=== PATIENT | female | born 1965 | race Caucasian/White ===

== ENCOUNTER 2016-12-18 05:27 | Emergency (ER) | payer OTHER ==
[~2016-12-18] VITALS: Ht 160 cm; Wt 90.9 kg
[2016-12-18 05:32] VITALS: BP 139/90; PULSE 84; RESP 16; O2SAT 99
--- NOTE | 2016-12-18 06:06 | ED.REPORT ---
HPI-Extremity Problem Lower Date of Service Dec 18, 2016 ED Provider: Adrienne Llanos MD The patient is a 51 year old female who presents to the ED due to left leg pain after a GLF this morning. She slipped on a wet floor and landed on her left leg. She reports pain from her left knee down into her ankle. Pt denies LOC and did not hit her head or back. She cannot put any weight on her leg and states that her, "whole lower leg throbs." Pt has not taken any medication for pain. Nursing Notes Stated Complaint: LEFT LEG POSS BROKEN Chief Complaint: Extremity Trauma Nursing Notes Reviewed: Yes Allergies: Coded Allergies: No Known Allergies (Unverified , 12/18/16) Scheduled PRN Hydrocodone-Acetaminophen 5-325 mg (Hydrocodone-Acetaminophen 5-325 mg) 1 Each Tablet 1 TABLET PO Q6H PRN PRN For Pain General Time Seen by MD: 06:05 Chief Complaint Leg injury left Hx Obtained From: Patient Arrived By: Walk-in Onset Occurred: Just prior to arrival Symptom Duration: Since onset Caused by: Fall on ground Context: Occurred at: Home injury Location: : Ankle left: Leg left Quality: Painful Severity: Current: Moderate Exacerbated by: Range of motion Recent Healthcare: No recent doctor visit, No recent hospitalization Past Medical History Past Medical History denies Past Surgical History bowel resection ankle fusion x2 Reports: Appendectomy Smoking History Unknown if Ever Smoker Social History Other Social History: Good social support, , Local resident Ambulatory Status Independent Review of Systems Musculoskeletal: Reports: Extremity pain (left leg), Extremity swelling (left leg), Denies: Lumbar pain, Neck pain, Thoracic pain Neurologic: Reports: Numbness (left foot), Denies: Change LOC, Dizziness, Syncope, Weakness Complete sys rev & neg: except as marked. Physical Exam Initial Vital Signs Vital Signs (First) Date Time Temp Pulse Resp B/P Pulse Ox O2 Delivery O2 Flow Rate FiO2 12/18/16 05:32 36.8 84 16 139/90 99 Room Air Initial VS: Reviewed Lower Extremity / Pelvis / MS: Neurologic intact Left Leg / Calf: Positive: Swelling present..., Tenderness present... sensation and motor intact point tenderness proximal fibula Ankle / Foot: No deformity, Neurologic intact no medial or lateral malleolar tenderness General/Constitutional: Awake, Alert, Cooperative, Not toxic appearing Skin: Atraumatic, Warm, Dry Neurologic: Oriented X3, Speech NL, No motor deficits, No sensory deficits Head / Eyes: Atraumatic, Normocephalic, PERRL, EOMI Neck: Atraumatic, Supple, Full range of motion, Non-tender, No midline vertebral tend Back: Atraumatic, Inspection NL, Full range of motion, Non-tender, No midline vertebral tend, No CVA tenderness Upper Extremity / MS: Full range of motion, No swelling, Non-tender bruise to distal posterior forearm Interpretation & Diagnostics X-Ray Interpretation Xray Interpretation: LEFT TIBIA/FIBULA X-RAY IMPRESSION: proximal fibula fracture X-Ray Ordered: Tibia fibula left Interpretation / Wet Read by: Wet read ED physician Re-Eval/Medical Decision Med Decision/Clinical Course The patient presents with an isolated left lower extremity injury. She does not have any bony tenderness to her ankle she does have proximal fibular pain but no midcalf pain. Her x-ray suspicious for proximal fibular fracture. The patient is a splint, she is neurovascularly intact. Counseled Regarding: Diagnosis, Lab results, Need for follow-up, When/why to return to ED Discharge & Departure Impression: Primary Impression: Fracture, fibula, proximal Encounter type: initial encounter Fracture type: closed Fracture morphology : unspecified fracture morphology Laterality: left Qualified Code: S82.832A - Other fracture of upper and lower end of left fibula, initial encounter for closed fracture Additional Impression: Ankle sprain Encounter type: initial encounter Involved ligament of ankle: unspecified ligament Laterality: left Qualified Code: S93.402A - Sprain of unspecified ligament of left ankle, initial encounter Disposition: Home Discharge Condition All VS Reviewed: Yes Condition: Stable Patient Instructions: Ankle Sprain (GEN), Crutch Instructions (ED), Leg Fracture (ED) Additional Instructions: Thank you for entrusting us with your care today. You have a proximal fibula fracture and have sprained your ankle. Use Tylenol and Ibuprofen as needed for pain. Follow up in one week with your doctor. Return to the Emergency Department for any new or worsening symptoms including increased pain, redness, warmth, or fever. I hope you feel better soon! Referrals: Victor Hugo Diaz MD (PCP) Scribe Attestation Portion of this note were transcribed by Elen Arguelles. I, Dr. Llanos , personally performed the history, physical exam, and medical decision-making: I reviewed and confirmed the accuracy for the information in the transcribed note. Signed by: rolanda Ferrell, 12/18/16 0800 copies to: Victor Hugo Diaz MD, Jena M MD Dec 18, 2016 06:06 Elen Arguelles Dec 18, 2016 06:08
[2016-12-18] MEDS ORDERED: HYDR-4003 PO (06:30)
--- NOTE | 2016-12-18 08:34 | DRSVH ---
PROCEDURE: X-RAY LEFT TIBIA/FIBULA, TWO VIEWS ([id number]) INDICATIONS: FALL, DISTAL TIB/FIB PAIN TECHNIQUE: 2 views of the tibia and fibula were acquired. COMPARISON: None. FINDINGS: Bones: No fractures or dislocations. No suspicious bony lesions. There is a surgical screw gilbert ing the calcaneus and talus. Soft tissues: No suspicious soft tissue calcifications or masses. IMPRESSION: No fracture or dislocation. Arthrodesis of the subtalar joint. Dictated by: Milla Lewis M.D. on 12/18/2016 at 8:32 Approved by: Milla Lewis M.D. on 12/18/2016 at 8:33
== END 2016-12-18 07:25 | disposition home or self-care (01) ==
LOC: SED 05:27
DX: S82.832A Other fracture of upper and lower end of left fibula, initial encounter for closed fracture (principal); S93.402A Sprain of unspecified ligament of left ankle, initial encounter; W01.0XXA Fall on same level from slipping, tripping and stumbling without subsequent striking against object, initial encounter; Y93.89 Activity, other specified; Y92.89 Other specified places as the place of occurrence of the external cause; Y99.8 Other external cause status

== ENCOUNTER 2017-01-12 19:43 | Emergency (ER) | payer OTHER ==
[~2017-01-12] VITALS: Ht 160 cm; Wt 95.5 kg
[~2017-01-12 19:43] MED LIST: HYDR-4003 PO
[2017-01-12 19:47] VITALS: BP 152/83; PULSE 88; RESP 20; O2SAT 100
--- NOTE | 2017-01-12 20:12 | ED.REPORT ---
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 She washed the wound with alcohol and put antibiotic ointment. Pt denies any medical issues or significant medical hx. Nursing Notes Stated Complaint: DOG BITE TO FACE Chief Complaint: Laceration Nursing Notes Reviewed: Yes Allergies: Coded Allergies: No Known Allergies (Unverified , 12/18/16) Scheduled PRN Hydrocodone-Acetaminophen 5-325 mg (Hydrocodone-Acetaminophen 5-325 mg) 1 Each Tablet 1 TABLET PO Q6H PRN PRN For Pain General Time Seen by Provider: 20:34 Chief Complaint Animal bite Hx Obtained From: Patient Arrived By: Walk-in Onset Occurred: Just prior to arrival Symptom Duration: Since onset Caused by: Dog bite Context: Occurred at: Home Recent Healthcare: No recent doctor visit, No recent hospitalization Similar Sx Previous: No Past Medical History Past Medical History denies Past Surgical History bowel resection ankle fusion x2 Reports: Appendectomy Smoking History Unknown if Ever Smoker Social History Other Social History: Good social support, , Local resident Ambulatory Status Independent Review of Systems Review of Systems Note: dog bite Skin: Reports Swelling (left cheek dog bite) Neurologic: Denies: Change LOC, Syncope Complete sys rev & neg: except as marked. Hematologic: Denies Bleeding Physical Exam Initial Vital Signs Vital Signs (First) Date Time Temp Pulse Resp B/P Pulse Ox O2 Delivery O2 Flow Rate FiO2 01/12/17 19:47 36.5 88 20 152/83 100 Room Air Initial VS: Reviewed Head / Eyes: Atraumatic, Normocephalic, PERRL, EOMI ENT: Atraumatic, Airway patent, Mucous membranes moist Neck: Atraumatic, Supple Neurologic: Oriented X3, Speech NL, No motor deficits General/Constitutional: Awake, Alert, No acute distress Respiratory / Chest: Atraumatic, Breath sounds NL, Breath sounds = bilat, No respiratory distress Cardiovascular: Heart rate NL, Regular rhythm, Heart sounds NL, No gallop, No murmurs, No rubs Trauma / Burn / Environmental: Positive: Bite injury puncture wound about left axillary region beneath left eye measures about 3 mm superficial abrasion on labial fold on the left no evidence of foreign body or cellulitis no swelling, warmth Upper Extremity / MS: Atraumatic, Inspection NL, No deformity Lower Extremity / Pelvis / MS: Atraumatic, Inspection NL, No deformity Re-Eval/Medical Decision Med Decision/Clinical Course The patient is a 51 year old female who presents to the ED c/o left cheek pain after 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 She washed the wound with alcohol and put antibiotic ointment. Pt denies any medical issues or significant medical hx. . The emergency department she is afebrile, hemodynamically stable in no apparent distress. Examination reveals one small puncture wound and adjacent superficial abrasion. There is no foreign body. There is no swelling, redness , warmth, fever or signs of infection. There is no purulent drainage. There are no other associated injuries. 2043: Plan for Tetanus shot, antibiotics, and discharge. Pt understands and agrees with plan. Patient has been prescribed a course of prophylactic Augmentin. She is advised to apply warm compresses. She is advised to return immediately for any signs of infection which were reviewed in detail. Prior to discharge follow-up and return precautions were reviewed in detail with the patient who verbalized understanding and agreement with the plan. The patient was discharged in stable condition. Counseled Regarding: Diagnosis, Lab results, Need for follow-up, When/why to return to ED Discharge & Departure Impression: Primary Impression: Dog bite Encounter type: initial encounter Qualified Code: W54.0XXA - Bitten by dog, initial encounter Additional Impressions: Puncture wound Abrasion Disposition: Home Discharge Condition All VS Reviewed: Yes Condition: Stable Patient Instructions: Animal Bite (ED) Additional Instructions: Thank you for entrusting us with your care today. I am sending you home with antibiotics. Take these as directed. Use hot compresses to help with pain. Keep an eye on the wound. Return to the Emergency Department for any new or worsening symptoms including signs of infection including warmth, redness, swelling, and fever. Referrals: Dana Luther MD (PCP) [place] Attestation Portion of this note were transcribed by Elen Arguelles. I, Dr. Coreas, personally performed the history, physical exam, and medical decision-making: I reviewed and confirmed the accuracy for the information in the transcribed note. Signed by: rolanda Ferrell, 01/12/17 2200 copies to: Dana Luther MD, Beck O MD Jan 12, 2017 20:12 Elen Arguelles Jan 12, 2017 20:39
[2017-01-12] MEDS ORDERED: TdaP Vaccine 0.5 mL Inj IM ONE (20:45)
[2017-01-12 21:17] VITALS: BP 108/74; PULSE 74; O2SAT 100
[2017-01-13] MEDS ORDERED: _Amoxicillin-Clavulanate 875-125 mg Tablet PO SCH (08:30)
== END 2017-01-12 21:19 | disposition home or self-care (01) ==
LOC: SED 19:43
DX: S01.432A Puncture wound without foreign body of left cheek and temporomandibular area, initial encounter (principal); W54.0XXA Bitten by dog, initial encounter; Y93.89 Activity, other specified; Y99.8 Other external cause status; Y92.019 Unspecified place in single-family (private) house as the place of occurrence of the external cause; Z87.891 Personal history of nicotine dependence; Z90.49 Acquired absence of other specified parts of digestive tract; Z90.89 Acquired absence of other organs; Z23 Encounter for immunization